=== PATIENT | female | born 1950 | race Caucasian/White ===

== ENCOUNTER 2017-06-08 10:24 | Emergency (ER) | payer MEDICAID ==
[~2017-06-08 10:24] MED LIST: XAN5 PO
[2017-06-08 15:10] VITALS: BP 140/67
== END 2017-06-08 15:10 | disposition home or self-care (01) ==
LOC: ED 10:24
DX: S20.212A Contusion of left front wall of thorax, initial encounter (principal); S80.01XA Contusion of right knee, initial encounter; I10 Essential (primary) hypertension; E11.9 Type 2 diabetes mellitus without complications; Z79.84 Long term (current) use of oral hypoglycemic drugs; Z79.899 Other long term (current) drug therapy; W19.XXXA Unspecified fall, initial encounter; Y93.89 Activity, other specified; Y92.89 Other specified places as the place of occurrence of the external cause; Y99.8 Other external cause status
CPT/HCPCS: J1885

== ENCOUNTER 2018-02-21 08:00 | Emergency (ER) | payer OTHER, MEDICAID ==
[~2018-02-21] VITALS: Ht 154.9 cm; Wt 81.2 kg
[2018-02-21 09:59] VITALS: BP 126/55
== END 2018-02-21 09:59 | disposition home or self-care (01) ==
LOC: ED 08:00
DX: S56.812A Strain of other muscles, fascia and tendons at forearm level, left arm, initial encounter (principal); S09.90XA Unspecified injury of head, initial encounter; I10 Essential (primary) hypertension; E11.9 Type 2 diabetes mellitus without complications; W19.XXXA Unspecified fall, initial encounter; Y93.89 Activity, other specified; Y92.89 Other specified places as the place of occurrence of the external cause; Y99.8 Other external cause status
CPT/HCPCS: 82962

== ENCOUNTER 2018-02-26 16:57 | Emergency (ER) | payer OTHER, MEDICAID ==
[~2018-02-26] VITALS: Ht 154.9 cm; Wt 79.8 kg
[2018-02-26 17:10] VITALS: BP 137/84; Ht 154.9 cm; Wt 79.8 kg
== END 2018-02-26 19:17 | disposition home or self-care (01) ==
LOC: ED 16:57
DX: S42.252A Displaced fracture of greater tuberosity of left humerus, initial encounter for closed fracture (principal); X58.XXXA Exposure to other specified factors, initial encounter; Y93.89 Activity, other specified; Y99.8 Other external cause status; Y92.89 Other specified places as the place of occurrence of the external cause